=== PATIENT | female | born 1980 | race African-American/Black ===

== ENCOUNTER 2018-04-13 10:47 | Emergency (ER) | payer MEDICAID ==
[~2018-04-13] VITALS: Ht 177.8 cm; Wt 104.3 kg
[2018-04-13 11:09] LABS: Urine WBC None Seen /hpf (0 - 5)
[2018-04-13 11:25] VITALS: BP 115/55
[2018-04-13 11:31] LABS: Urine Bacteria NONE SEEN /hpf (None Seen); Urine Blood Negative /uL (Negative); Urine Mucus FEW (None Seen); Urine Specific Gravity 1.023 (1.001-1.035)
[2018-04-13] MEDS ORDERED: METHOCARBAMOL 500 MG TAB PO ONE (12:45)
== END 2018-04-13 13:37 | disposition home or self-care (01) ==
LOC: ER 10:47
DX: M54.2 Cervicalgia (principal)
CPT/HCPCS: 72040; 81001; 81025

== ENCOUNTER 2018-12-21 15:52 | Inpatient (IN) | payer MEDICAID ==
[~2018-12-21] VITALS: Ht 177.8 cm; Wt 102.5 kg
[2018-12-21 16:41] LABS: Basophils # (auto) 0.1 uL; Basophils % (auto) 1.1 % (0.0-2.0); Eosinophils # (auto) 0.1 uL; Eosinophils % (auto) 1.3 % (0.0-7.0); Hematocrit 22.3 % (36.0-46.0); Lymphocytes # (auto) 2.3 uL; Lymphocytes % (auto) 37.8 % (10.0-50.0); Mean Corpuscular Hemoglobin 17.3 pg (28.0-32.0); Mean Corpuscular Hgb Conc. 28.8 g/dL (32.0-36.0); Mean Corpuscular Volume 60.1 fL (80.0-100.0); Monocytes # (auto) 0.4 uL; Monocytes % (auto) 6.4 % (0.0-12.0); Neutrophils # (auto) 3.2 uL; Neutrophils % (auto) 53.4 % (37.0-80.0); Nucleated Red Blood Cells % 0.1 %; Platelet Count (auto) 448 10^3/uL (140-450); Red Blood Cells 3.71 10^6/uL (4.0-5.20)
[2018-12-21 16:45] LABS: Hemoglobin 6.4 g/dL (12.2-16.2); Red Cell Distribution Width 23.3 % (11.8-14.3)
[2018-12-21 16:53] LABS: Albumin 3.9 g/dL (3.4-5.0); Calcium 8.7 mg/dL (8.5-10.1); Potassium 4.1 mmol/L (3.5-5.1)
[2018-12-21 17:08] LABS: INR 0.95 (0.9-1.15); Partial Thromboplastin Time 26.8 sec (23.64-32.05)
[2018-12-21 17:12] LABS: BUN/Creatinine Ratio 13.2; Bilirubin, Total 0.3 mg/dL (0.2-1.0)
[2018-12-21 20:00] VITALS: BP 129/70
[2018-12-21 20:03] LABS: Urine Bacteria NONE SEEN /hpf (None Seen); Urine Blood Negative /uL (Negative); Urine Specific Gravity 1.005 (1.001-1.035); Urine WBC 1 /hpf (0 - 5)
[2018-12-21 20:20] VITALS: BP 126/58
[2018-12-21] MEDS ORDERED: ONDANSETRON HCL 4 MG/2 ML VIAL IV PRN (21:15)
[2018-12-21] MEDS ORDERED: ACETAMINOPHEN 500 MG TAB PO PRN (21:15)
[2018-12-21] MEDS ORDERED: TEMAZEPAM 15 MG CAP PO PRN (21:15)
[2018-12-21 21:50] LABS: % Iron Saturation 3.5 % (15-50)
[2018-12-21 22:03] LABS: Ferritin 2.7 ng/mL (10-322); Folate (Folic Acid) 12.62 ng/mL (5.38-24)
[2018-12-21 22:15] VITALS: BP 128/79
[2018-12-21 23:25] VITALS: BP 123/63
--- NOTE | 2018-12-21 23:25 | NUR ---
[facility] admit from ER [facility] admitted to [facility] after hand off tool received. Patient oriented to primary RN, unit, room, bed, and unit policies regarding patient care and visiting hours. Patient weighed by bedscale and encouraged to call if they need something. All questions and concerns addressed, patient verbalized understanding.
--- NOTE | 2018-12-22 00:14 | NUR ---
Patient requested for 2 Apple juice and jocy crackers.
[2018-12-22] MEDS ORDERED: TEMAZEPAM 15 MG CAP PO PRN (00:30)
[2018-12-22 04:14] VITALS: BP 123/63
[2018-12-22 07:01] LABS: BUN/Creatinine Ratio 15.3; Calcium 8.6 mg/dL (8.5-10.1); Potassium 4.1 mmol/L (3.5-5.1)
[2018-12-22 07:07] LABS: Basophils # (auto) 0.1 uL; Eosinophils # (auto) 0.1 uL; Monocytes # (auto) 0.4 uL
[2018-12-22 07:09] LABS: Basophils % (auto) 0.9 % (0.0-2.0); Eosinophils % (auto) 1.4 % (0.0-7.0); Hematocrit 23.9 % (36.0-46.0); Lymphocytes # (auto) 2.2 uL; Lymphocytes % (auto) 39.5 % (10.0-50.0); Mean Corpuscular Hemoglobin 18.2 pg (28.0-32.0); Mean Corpuscular Hgb Conc. 29.1 g/dL (32.0-36.0); Mean Corpuscular Volume 62.5 fL (80.0-100.0); Monocytes % (auto) 7.8 % (0.0-12.0); Neutrophils # (auto) 2.8 uL; Neutrophils % (auto) 50.4 % (37.0-80.0); Nucleated Red Blood Cells % 0.3 %; Platelet Count (auto) 371 10^3/uL (140-450); Red Blood Cells 3.83 10^6/uL (4.0-5.20); White Blood Cell 5.5 10^3/uL (4.4-10.8)
--- NOTE | 2018-12-22 07:20 | NUR ---
Opening Shift Note Assumed care of patient, awake and alert. No S/S of distress/SOB or pain. Instructed on POC and to call for assist PRN, will continue to monitor for changes Q1hr and PRN.
[2018-12-22 08:00] VITALS: BP 99/42
[2018-12-22 08:16] VITALS: BP 99/42
[2018-12-22 08:44] LABS: Red Cell Distribution Width 24.8 % (11.8-14.3)
--- NOTE | 2018-12-22 08:47 | NUR ---
Critical hemoglobin 7 Hospitalist ernestina Addendum: 12/22/18 at 0906 by MILTON POMPA RN Dr. Dumont notified.
[2018-12-22] MEDS ORDERED: FAMOTIDINE 20 MG TAB PO SCH (10:00)
[2018-12-22] MEDS ORDERED: SODIUM FERR GLUC 62.5MG/5ML 125 MG in SODIUM CHL 0.9% 100 ML IV ONE (13:00)
[2018-12-22] MEDS ORDERED: FER325T PO (13:06)
[2018-12-22 13:54] VITALS: BP 119/66
[2018-12-22 16:49] VITALS: BP 120/59
--- NOTE | 2018-12-22 17:00 | NUR ---
Discharge from Med Surg Discharge instructions given as ordered. Encourage to follow up with PMD as instructed. All questions and concerns addressed. Patient verbalized understanding. Medication reconciliation form completed and copy given to patient. Home medications held in Pharmacy returned to patient, and needed vaccines given. IV removed with catheter intact, pressure dressing applied. Patient taken to vehicle via wheelchair with all personal belongings, accompanied by staff and family member. No distress noted at time of departure.
== END 2018-12-22 17:00 | disposition home or self-care (01) | DRG 663 ==
LOC: ER 15:52 → OVERFLOW 15:53 → WEST WING 22:45
PROVIDERS: ADMIT Nurse Practitioner Family; ATTEND Internal Medicine
PROC: 30233N1 Transfusion of Nonautologous Red Blood Cells into Peripheral Vein, Percutaneous Approach (ICD-10-PCS; principal; 2018-12-21)
DX: D50.9 Iron deficiency anemia, unspecified (principal); D25.9 Leiomyoma of uterus, unspecified; Z72.89 Other problems related to lifestyle
CPT/HCPCS: 36415; 36430; 76856; 80048; 80053; 81001; 82728; 82746; 83540; 83550; 84702; 85025; 85610; 85730; 86850; 86900; 86901; 86920; 94761; G0378